=== PATIENT | female | born 1990 | race American Indian/Alaskan Native ===

== ENCOUNTER 2017-01-05 02:29 | Emergency (ER) | payer MEDICAID ==
[2017-01-05 03:35] LABS: Basophils % (Auto) 0.6 % (0.0-1.8); Hemoglobin 13.4 gm/dl (10.1-14.3); Mean Corpuscular HGB Conc 33 % (30-34); Mean Corpuscular Hemoglobin 31 pg (28-32); Mean Corpuscular Volume 94 fl (79-97); Platelet Count 345 K/mm3 (140-440); Red Blood Count 4.37 M/mm3 (3.65-5.03); White Blood Count 8.8 K/mm3 (4.5-11.0)
[2017-01-05 03:50] LABS: Anion Gap 18 mmol/L; Blood Urea Nitrogen 18 mg/dL (7-17); Calcium 9.4 mg/dL (8.4-10.2); Carbon Dioxide 24 mmol/L (22-30); Chloride 103.3 mmol/L (98-107); Glucose 92 mg/dL (65-100); Potassium 3.7 mmol/L (3.6-5.0); Sodium 142 mmol/L (137-145)
[2017-01-05 04:33] LABS: Bacteria,Urine 1+ /HPF (Negative); Bilirubin,Urine NEG (Negative); Blood,Urine NEG (Negative); Ketones,Urine NEG (Negative); Leukocyte Esterase,Urine NEG (Negative); Mucus,Urine FEW /HPF; Nitrite,Urine NEG (Negative); Urobilinogen,Urine < 2.0 mg/dL (<2.0)
--- NOTE | 2017-01-05 07:51 | Emergency Department Report ---
ED General Adult HPI - General Chief complaint: Weakness Stated complaint: LT SIDE NUMBNESS Time Seen by Provider: 01/05/17 07:40 Source: patient Mode of arrival: Ambulatory Limitations: No Limitations - History of Present Illness Initial comments: 26-year-old female presents to the emergency department complaining of left arm and facial numbness. Patient reports the onset of symptoms 3 days ago at home. Symptoms resolved spontaneously after approximately 15 minutes. She called EMS at that time and states they told her her blood sugar was low and she needed to follow up with her primary care physician. Patient attempted to get an appointment with her primary care doctor but was told she would not be seen until January 27. The left-sided facial and arm numbness returned sometime during the night last night. Patient is unable to pinpoint an exact onset. She denies associated weakness. At this time, her numbness has resolved. She is complaining of headache at this time. Headache is described as throbbing in nature. It is located across her forehead and the top of her head. She denies vision changes, nausea, or vomiting. There are no other complaints. -: Gradual, During the night Location: head, face, left, upper extremity Radiation: non-radiation Severity scale (0 -10): 2 Quality: other (throbbing) Consistency: constant Improves with: none Worsens with: none Associated Symptoms: denies other symptoms Treatments Prior to Arrival: none - Related Data Previous Rx's Medication Instructions Recorded Last Taken Type Butalb/Acetamin/Caff 50-325-40 1 each PO Q4H PRN #20 tablet 01/05/17 Unknown Rx [Fioricet] Allergies Allergy/AdvReac Type Severity Reaction Status Date / Time ibuprofen Allergy Swelling Verified 05/29/14 12:58 ED Review of Systems ROS: Stated complaint: LT SIDE NUMBNESS Other details as noted in HPI Comment: All other systems reviewed and negative Neurological: headache, numbness ED Past Medical Hx - Past Medical History Previous Medical History?: Yes Hx Hypertension: Yes Hx Asthma: Yes - Surgical History Past Surgical History?: Yes Additional Surgical History: - Family History Family history: no significant - Social History Smoking Status: Never Smoker Substance Use Type: Alcohol - Medications Home Medications: Home Medications Medication Instructions Recorded Confirmed Last Taken Type Butalb/Acetamin/Caff 50-325-40 1 each PO Q4H PRN #20 tablet 01/05/17 Unknown Rx [Fioricet] ED Physical Exam - General Limitations: No Limitations General appearance: alert, in no apparent distress - Head Head exam: Present: atraumatic, normocephalic - Eye Eye exam: Present: normal appearance, PERRL, EOMI - ENT ENT exam: Present: normal exam, normal orophraynx, mucous membranes moist - Neck Neck exam: Present: normal inspection, full ROM. Absent: tenderness - Respiratory Respiratory exam: Present: normal lung sounds bilaterally. Absent: respiratory distress - Cardiovascular Cardiovascular Exam: Present: regular rate, normal rhythm, normal heart sounds - GI/Abdominal GI/Abdominal exam: Present: soft, normal bowel sounds. Absent: distended, tenderness - Extremities Exam Extremities exam: Present: normal inspection, full ROM. Absent: tenderness - Back Exam Back exam: Present: normal inspection, full ROM. Absent: tenderness - Neurological Exam Neurological exam: Present: alert, oriented X3. Absent: motor sensory deficit - Skin Skin exam: Present: warm, dry, intact ED Course Vital Signs 01/05/17 01/05/17 01/05/17 02:35 05:39 07:23 Temperature 98.5 F 98.1 F Pulse Rate 104 H 77 79 Respiratory 20 22 16 Rate Blood Pressure 159/115 144/98 156/112 [Right] O2 Sat by Pulse 100 100 99 Oximetry 01/05/17 09:00 Temperature Pulse Rate 84 Respiratory 16 Rate Blood Pressure 135/90 [Right] O2 Sat by Pulse 98 Oximetry ED Medical Decision Making - Lab Data Result diagrams: 01/05/17 03:10 01/05/17 03:10 - Medical Decision Making Lab results reviewed and discussed with the patient. Patient reports headache has resolved with medication. Patient will be discharged home at this time. - Differential Diagnosis headache, paresthesia, muscle spasm, radiculopathy Critical care attestation.: If time is entered above; I have spent that time in minutes in the direct care of this critically ill patient, excluding procedure time. ED Disposition Clinical Impression: Headache Qualifiers: Headache type: unspecified Headache chronicity pattern: acute headache Intractability: not intractable Qualified Code(s): R51 - Headache Disposition: DISCHARGED TO HOME OR SELFCARE Is pt being admited?: No Condition: Stable Instructions: Acute Headache (ED) Prescriptions: Butalb/Acetamin/Caff 50-325-40 [Fioricet] 1 each PO Q4H PRN #20 tablet PRN Reason: Headache Referrals: JAIRO SERRATO MD [Primary Care Provider] - 3-5 Days Time of Disposition: 09:46
[2017-01-05] MEDS: REGLAN IV ONE (08:03)
[2017-01-05] MEDS: NACL 0.9% 1000 ML 1,000 ML IV ONE (08:03)
[2017-01-05 09:56] VITALS: BP 133/87
== END 2017-01-05 10:00 | disposition home or self-care (01) ==
LOC: ED 02:29
DX: R51 Headache (principal); I10 Essential (primary) hypertension; J45.909 Unspecified asthma, uncomplicated
CPT/HCPCS: 36415; 80048; 81001; 84703; 85025; 96361; 96374; 99283; J2765; J7030

== ENCOUNTER 2019-01-03 18:41 | Emergency (ER) | payer MEDICAID, OTHER ==
--- NOTE | 2019-01-03 18:59 | Emergency Department Report ---
Blank Doc - Documentation Documentation: This is a 28-year-old female that presents with right pelvic pain. Patient was sent by [facility] for a positive ectopic . This initial assessment/diagnostic orders/clinical plan/treatment(s) is/are subject to change based on patient's health status, clinical progression and re- assessment by fellow clinical providers in the ED. Further treatment and workup at subsequent clinical providers discretion. Patient/guardians urged not to elope from the ED as their condition may be serious if not clinically assessed and managed. Initial orders include: 1- Patient sent to MAIN ED for further evaluation and treatment 2- labs 3- UA 4- US OB 5- chief ii dispatcher notified to have patient brought back JE
[2019-01-03 19:24] LABS: Basophils # (Auto) 0.1 K/mm3 (0.0-0.1); Basophils % (Auto) 0.7 % (0.0-1.8); Eosinophils # (Auto) 0.5 K/mm3 (0.0-0.4); Eosinophils % (Auto) 6.4 % (0.0-4.3); Hematocrit 37.9 % (30.3-42.9); Hemoglobin 12.4 gm/dl (10.1-14.3); Lymphocytes % (Auto) 37.6 % (13.4-35.0); Mean Corpuscular HGB Conc 33 % (30-34); Mean Corpuscular Volume 94 fl (79-97); Monocytes # (Auto) 0.6 K/mm3 (0.0-0.8); Monocytes % (Auto) 7.6 % (0.0-7.3); Platelet Count 349 K/mm3 (140-440); Red Blood Count 4.03 M/mm3 (3.65-5.03); Red Cell Distribution Width 15.1 % (13.2-15.2)
[2019-01-03 19:32] LABS: Bilirubin,Urine NEG (Negative); Blood,Urine LG (Negative); Color,Urine Yellow (Yellow); Mucus,Urine FEW /HPF; Urobilinogen,Urine < 2.0 mg/dL (<2.0)
[2019-01-03 19:43] LABS: BUN/Creatinine Ratio 14; Blood Urea Nitrogen 13 mg/dL (7-17); Calcium 9.3 mg/dL (8.4-10.2); Hemolysis Index 10
--- NOTE | 2019-01-03 21:32 | Ultrasound Report ---
PROCEDURE: US OB <= 14 WEEKS FETUS HISTORY: right pelvic pain FINDINGS: Real-time ultrasound the pelvis was performed by transabdominal and endovaginal technique. The uterus measures 10.0 x 5.2 x 5.6 cm. The endometrial stripe measures 0.66 cm which is within norm al limits. No intrauterine gestation is seen. The right ovary measures 2.3 x 1.8 x 2.1 cm and contains a complex cyst measuring 1.0 x 0.7 x 1.4 cm, without peripheral vascularity The left measures 3.2 x 2.4 x 2.8 cm contains thick-walled cystic structure measuring 2.0 x 2.0 x 2.0 cm, with some peripheral vascularity. This could represent luteal cyst or ectopic gestation. There is a thin-walled cystic structure medial to the left ovary 3.1 x 2.3 x 2.6 cm. No definite theresa pheral hypervascularity is seen, but given the absence of intrauterine gestation, ectopic gestation i s not excluded. Differential diagnosis would include paraovarian cyst. Correlation with quantitative hCG and/or follow-up ultrasound recommended. IMPRESSION: No intrauterine gestation is seen Thick-walled left ovarian cystic lesion with peripheral vascularity, luteal cyst versus ectopic gesta tion Cystic structure medial to left ovary without peripheral vascularity. Differential diagnosis would in clude ectopic gestation or paraovarian cyst. Follow-up ultrasound and/or quantitative hCG are recomme nded. This document is electronically signed by Gurjit Fritz MD., January 03 2019 09:30:46 PM ET
--- NOTE | 2019-01-03 21:48 | Emergency Department Report ---
ED Female HPI - General Chief complaint: Vaginal Bleeding Stated complaint: ECTOPIC Time Seen by Provider: 01/03/19 18:57 Source: patient, RN notes reviewed Mode of arrival: Ambulatory Limitations: No Limitations - History of Present Illness Initial comments: This is a 28-year-old female. The patient is not known to this provider previously. The patient is 3, para 1. She thinks, but is not certain that her last period was on or around December 15. The [facility]. She is sent to the emergency room to exclude ectopic . The patient complains of nontraumatic right-sided, cramping abdominal pain, and bleeding. The symptoms have been present since the weekend. They're intermittent. They're basically resolved at this time. The patient denies headache, neck pain, chest pain, shortness of breath, irritative, obstructive urinary symptoms. I contacted her covering private engineering teacher, Dr. Maria Teresa Lundy, who informed me that the patient had outpatient quantitative hCGs, of approximately 900. The patient was apparently instructed to present to the aforementioned physician's office earlier on today, and apparently failed to do so. The pain does not radiate anywhere, and does not have exacerbating or relieving factors the patient is aware of. MD Complaint: vaginal bleeding, pelvic pain -: Gradual, days(s) Location: suprapubic, RLQ Severity: moderate Quality: cramping Consistency: intermittent Improves with: none Worsens with: none Are you Now?: Yes Associated Symptoms: vaginal bleeding, abdominal pain. denies: vaginal discharge, nausea/vomiting, fever/chills, headaches, loss of appetite, dysuria, hematuria, rash, seizure, shortness of breath, syncope, weakness - Related Data Sexually active: Yes Previous Rx's Medication Instructions Recorded Last Taken Type Butalb/Acetamin/Caff 50-325-40 1 each PO Q4H PRN #20 tablet 01/05/17 Unknown Rx [Fioricet] Allergies Allergy/AdvReac Type Severity Reaction Status Date / Time ibuprofen Allergy Swelling Verified 05/29/14 12:58 ED Review of Systems ROS: Stated complaint: ECTOPIC Other details as noted in HPI Constitutional: denies: fever Eyes: denies: vision change ENT: denies: epistaxis Respiratory: denies: cough Cardiovascular: denies: chest pain Gastrointestinal: abdominal pain. denies: vomiting Genitourinary: abnormal menses. denies: dysuria Musculoskeletal: denies: back pain Skin: denies: lesions Neurological: denies: weakness Psychiatric: denies: anxiety ED Past Medical Hx - Past Medical History Previous Medical History?: Yes Hx Hypertension: Yes Hx Asthma: Yes - Surgical History Past Surgical History?: Yes Additional Surgical History: - Social History Smoking Status: Unknown if ever smoked Substance Use Type: None - Medications Home Medications: Home Medications Medication Instructions Recorded Confirmed Last Taken Type Butalb/Acetamin/Caff 50-325-40 1 each PO Q4H PRN #20 tablet 01/05/17 Unknown Rx [Fioricet] ED Physical Exam - General Limitations: No Limitations General appearance: alert, in no apparent distress - Head Head exam: Present: atraumatic, normocephalic - Eye Eye exam: Present: normal appearance, EOMI. Absent: nystagmus - ENT ENT exam: Present: normal exam, normal orophraynx, mucous membranes moist, normal external ear exam - Neck Neck exam: Present: normal inspection, full ROM. Absent: tenderness, meningismus - Respiratory Respiratory exam: Present: normal lung sounds bilaterally. Absent: respiratory distress, wheezes, rales, rhonchi, stridor, chest wall tenderness - Cardiovascular Cardiovascular Exam: Present: regular rate, normal rhythm, normal heart sounds. Absent: bradycardia, tachycardia, irregular rhythm, systolic murmur, diastolic murmur, rubs, gallop - GI/Abdominal GI/Abdominal exam: Present: soft. Absent: distended, tenderness, guarding, rebound, rigid, pulsatile mass - Extremities Exam Extremities exam: Present: normal inspection, full ROM, other (2+ pulses noted in the bilateral upper, lower extremities. Compartments soft. No long bony tenderness. The pelvis is stable.). Absent: pedal edema, joint swelling, calf tenderness - Back Exam Back exam: Present: normal inspection, full ROM. Absent: tenderness, CVA tenderness (R), paraspinal tenderness - Neurological Exam Neurological exam: Present: alert, other (Extraocular movements intact. Tongue midline. No facial droop. Facial sensation intact to light touch in the V1, V2, V3 distribution bilaterally. 5 and 5 strength in 4 extremities.. Sensation is intact to light touch in 4 extremities.). Absent: motor sensory deficit - Psychiatric Psychiatric exam: Present: normal affect, normal mood - Skin Skin exam: Present: warm, dry, intact, normal color. Absent: rash ED Course Vital Signs 01/03/19 01/03/19 18:59 21:48 Temperature 98.4 F 98.1 F Pulse Rate 116 H 74 Respiratory 16 15 Rate Blood Pressure 152/94 Blood Pressure 145/91 [Left] O2 Sat by Pulse 99 100 Oximetry - Reevaluation(s) Reevaluation #1: 01/03/19 22:54 Differential diagnosis, including but not limited to: Urinary tract infection, round ligament pain, ectopic , ovarian cyst, constipation, functional abdominal pain Assessment and plan: 28-year-old female with resolved right lower quadrant pain, nontender, afebrile, reassuring vital signs, negative Goff sign, negative Rovsing sign, with an ultrasound that demonstrates a left-sided cystic thick- walled structure, suspicious for possible luteal cyst versus ectopic gestation. Extensive discussion had with her aforementioned covering engineering teacher, Dr. Lundy. The patient does not have any right lower quadrant tenderness at this time. I do not have a high suspicion for appendicitis at this time. Given the laboratory findings, and physical exam findings, and nondiagnostic ultrasound, the aforementioned engineering teacher recommends that the patient reports to her office in 2 days for repeat follow-up, evaluation. I had an extensive discussion with the patient regarding need for compliance for follow-up, and specifically counseled her that failure to follow-up may result in disability, paralysis, , permanent loss of quality of life. This is apparently a very highly desired , and the aforementioned engineering teacher is reluctant to initiate empiric methotrexate therapy at this time, given ambiguous ultrasound findings. Patient verbalizes understanding to discharge instructions. ED Medical Decision Making - Lab Data Result diagrams: 01/03/19 19:03 01/03/19 19:03 Vital Signs 01/03/19 01/03/19 18:59 21:48 Temperature 98.4 F 98.1 F Pulse Rate 116 H 74 Respiratory 16 15 Rate Blood Pressure 152/94 Blood Pressure 145/91 [Left] O2 Sat by Pulse 99 100 Oximetry Lab Results 01/03/19 01/03/19 01/03/19 Range/Units 19:03 19:03 19:03 WBC 7.9 (4.5-11.0) K/mm3 RBC 4.03 (3.65-5.03) M/mm3 Hgb 12.4 (10.1-14.3) gm/dl Hct 37.9 (30.3-42.9) % MCV 94 (79-97) fl MCH 31 (28-32) pg MCHC 33 (30-34) % RDW 15.1 (13.2-15.2) % Plt Count 349 (140-440) K/mm3 Lymph % (Auto) 37.6 H (13.4-35.0) % [place] % (Auto) 7.6 H (0.0-7.3) % Eos % (Auto) 6.4 H (0.0-4.3) % Baso % (Auto) 0.7 (0.0-1.8) % Lymph # 3.0 (1.2-5.4) K/mm3 [place] # 0.6 (0.0-0.8) K/mm3 Eos # 0.5 H (0.0-0.4) K/mm3 Baso # 0.1 (0.0-0.1) K/mm3 Seg Neutrophils % 47.7 (40.0-70.0) % Seg Neutrophils # 3.8 (1.8-7.7) K/mm3 Sodium 140 (137-145) mmol/L Potassium 3.8 (3.6-5.0) mmol/L Chloride 104.9 (98-107) mmol/L Carbon Dioxide 24 (22-30) mmol/L Anion Gap 15 mmol/L BUN 13 (7-17) mg/dL Creatinine 0.9 (0.7-1.2) mg/dL Estimated GFR > 60 ml/min BUN/Creatinine Ratio 14 % Glucose 109 H (65-100) mg/dL Calcium 9.3 (8.4-10.2) mg/dL Total Bilirubin (0.1-1.2) mg/dL Direct Bilirubin (0-0.2) mg/dL Indirect Bilirubin mg/dL AST (5-40) units/L ALT (7-56) units/L Alkaline Phosphatase (35-129) units/L Total Protein (6.3-8.2) g/dL Albumin (3.9-5) g/dL Albumin/Globulin Ratio % HCG, Quant 816.3 H (0-4) mIU/mL Urine Color (Yellow) Urine Turbidity (Clear) Urine pH (5.0-7.0) Ur Specific [place] (1.003-1.030) Urine Protein (Negative) mg/dL Urine Glucose (UA) (Negative) mg/dL Urine Ketones (Negative) mg/dL Urine Blood (Negative) Urine Nitrite (Negative) Urine Bilirubin (Negative) Urine Urobilinogen (<2.0) mg/dL Ur Leukocyte Esterase (Negative) Urine WBC (Auto) (0.0-6.0) /HPF Urine RBC (Auto) (0.0-6.0) /HPF U Epithel Cells (Auto) (0-13.0) /HPF Urine Mucus /HPF Blood Type Antibody Screen 01/03/19 01/03/19 01/03/19 Range/Units 19:03 19:05 19:20 WBC (4.5-11.0) K/mm3 RBC (3.65-5.03) M/mm3 Hgb (10.1-14.3) gm/dl Hct (30.3-42.9) % MCV (79-97) fl MCH (28-32) pg MCHC (30-34) % RDW (13.2-15.2) % Plt Count (140-440) K/mm3 Lymph % (Auto) (13.4-35.0) % [place] % (Auto) (0.0-7.3) % Eos % (Auto) (0.0-4.3) % Baso % (Auto) (0.0-1.8) % Lymph # (1.2-5.4) K/mm3 [place] # (0.0-0.8) K/mm3 Eos # (0.0-0.4) K/mm3 Baso # (0.0-0.1) K/mm3 Seg Neutrophils % (40.0-70.0) % Seg Neutrophils # (1.8-7.7) K/mm3 Sodium (137-145) mmol/L Potassium (3.6-5.0) mmol/L Chloride (98-107) mmol/L Carbon Dioxide (22-30) mmol/L Anion Gap mmol/L BUN (7-17) mg/dL Creatinine (0.7-1.2) mg/dL Estimated GFR ml/min BUN/Creatinine Ratio % Glucose (65-100) mg/dL Calcium (8.4-10.2) mg/dL Total Bilirubin 0.20 (0.1-1.2) mg/dL Direct Bilirubin < 0.2 (0-0.2) mg/dL Indirect Bilirubin 0.0 mg/dL AST 16 (5-40) units/L ALT 15 (7-56) units/L Alkaline Phosphatase 67 (35-129) units/L Total Protein 6.8 (6.3-8.2) g/dL Albumin 4.0 (3.9-5) g/dL Albumin/Globulin Ratio 1.4 % HCG, Quant (0-4) mIU/mL Urine Color Yellow (Yellow) Urine Turbidity Clear (Clear) Urine pH 5.0 (5.0-7.0) Ur Specific [place] 1.034 H (1.003-1.030) Urine Protein 30 mg/dl (Negative) mg/dL Urine Glucose (UA) Neg (Negative) mg/dL Urine Ketones Neg (Negative) mg/dL Urine Blood Lg (Negative) Urine Nitrite Neg (Negative) Urine Bilirubin Neg (Negative) Urine Urobilinogen < 2.0 (<2.0) mg/dL Ur Leukocyte Esterase Neg (Negative) Urine WBC (Auto) 1.0 (0.0-6.0) /HPF Urine RBC (Auto) 3.0 (0.0-6.0) /HPF U Epithel Cells (Auto) 6.0 (0-13.0) /HPF Urine Mucus Few /HPF Blood Type AB POSITIVE Antibody Screen Negative - Radiology Data Radiology results: report reviewed, image reviewed Print Report Referring Physician: GODWIN HERRERA Patient Name: MERVAT AMES Date of : 1990 Sex: Female Report Date: 2019-01-03 Report Status: Finalized Findings [facility] [address] [place] [address] Ultrasound Report Signed Patient: MERVAT AMES MR#: [id number] : 1990 Acct:[id number] Age/Sex: 28 / F ADM Date: 01/03/19 Loc: ED Attending Dr: Ordering Physician: GODWIN HERRERA NP Date of Service: 01/03/19 Procedure(s): US OB transvaginal Accession Number(s): [id number] cc: GODWIN HERRERA NP PROCEDURE: US OB TRANSVAGINAL HISTORY: right pelvic pain FINDINGS: Real-time ultrasound the pelvis was performed by transabdominal and endovaginal technique. The uterus measures 10.0 x 5.2 x 5.6 cm. The endometrial stripe measures 0.66 cm which is within normal limits. No intrauterine gestation is seen. The right ovary measures 2.3 x 1.8 x 2.1 cm and contains a complex cyst measuring 1.0 x 0.7 x 1.4 cm, without peripheral vascularity The left measures 3.2 x 2.4 x 2.8 cm contains thick-walled cystic structure measuring 2.0 x 2.0 x 2.0 cm, with some peripheral vascularity. This could represent luteal cyst or ectopic gestation. There is a thin-walled cystic structure medial to the left ovary 3.1 x 2.3 x 2.6 cm. No definite peripheral hypervascularity is seen, but given the absence of intrauterine gestation, ectopic gestation is not excluded. Differential diagnosis would include paraovarian cyst. Correlation with quantitative hCG and/or follow-up ultrasound recommended. IMPRESSION: No intrauterine gestation is seen Thick-walled left ovarian cystic lesion with peripheral vascularity, luteal cyst versus ectopic gestation Cystic structure medial to left ovary without peripheral vascularity. Differential diagnosis would include ectopic gestation or paraovarian cyst. Follow-up ultrasound and/or quantitative hCG are recommended. This document is electronically signed by Gurjit Fritz MD., January 03 2019 09:31:07 PM ET Transcribed By: CÉSAR Dictated By: GURJIT FRITZ MD Electronically Authenticated By: GURJIT FRITZ MD Signed Date/Time: 01/03/19 6018 Critical care attestation.: If time is entered above; I have spent that time in minutes in the direct care of this critically ill patient, excluding procedure time. ED Disposition Clinical Impression: Abdominal pain affecting Disposition: DC-01 TO HOME OR SELFCARE Is pt being admited?: No Does the pt Need Aspirin: No Condition: Good Additional Instructions: Rest, avoid heavy lifting, strenuous physical activity, and do not have sex. Patient needs to follow-up with her [employer] doctor in 2 days for repeat physical examination and blood test/quantitative hCG. The patient does not follow up with her [employer] doctor, the patient may return to this emergency room for repeat physical exam, laboratory studies and ultrasound. Not following up as recommended may result in an undiagnosed ectopic , which can cause hemorrhagic bleeding, shock, , paralysi s, permanent loss of quality of life. Therefore, it is very important that the patient follow up in 2 days as recommended. Please return to the emergency room right away with new pain, worsened pain, migration of pain, projectile vomiting, change in mental status, confusion, inability to tolerate liquid feeds, bleeding more than 2 pads soaked per hour, lightheadedness, chest pain, shortness of breath, or loss of consciousness. For pain, the patient may take acetaminophen [id number], 650 mg, every 4-6 hours. Please continue current outpatient medications, and avoid consumption of Motrin, ibuprofen, Naprosyn, Aleve, alcoholic beverages, and tobacco, cannabis. Referrals: JUANITA ESPINO MD [Primary Care Provider] - 3-5 Days MYCHAL LUNDY MD [Staff Physician] - 3-5 Days [facility] [Provider Group] - 3-5 Days
[2019-01-03 22:37] LABS: Alanine Aminotransferase 15 units/L (7-56)
[2019-01-03 22:38] LABS: Bilirubin,Direct < 0.2 mg/dL (0-0.2)
[2019-01-03 23:28] VITALS: BP 140/91
== END 2019-01-03 23:19 | disposition home or self-care (01) ==
LOC: ED 18:41
DX: O26.899 Other specified pregnancy related conditions, unspecified trimester (principal); R10.9 Unspecified abdominal pain; Z3A.00 Weeks of gestation of pregnancy not specified
CPT/HCPCS: 36415; 76801; 76817; 80048; 80076; 81001; 84702; 85025; 86850; 86900; 86901